=== PATIENT | male | born 1970 | race Hispanic/Latino ===

== ENCOUNTER → 2019-03-22 | Emergency (ER) | payer BC ==
[~2019-03-22] VITALS: Ht 165.1 cm; Wt 86.2 kg
[~2019-03-22] MED LIST: HYDROCODONE/APAP 5MG-325MG TAB PO ONE; KETOROLAC TROMETHAMINE 30 MG/ML VIAL IM ONE; KETOROLAC TROMETHAMINE 30 MG/ML VIAL IV ONE; KETOROLAC TROMETHAMINE 30 MG/ML VIAL ONE; ONDANSETRON HCL 4 MG ORAL DISINTEGRATING TAB PO ONE; SODIUM CHLORIDE 0.9% 1000ML 1,000 ML ONE
--- NOTE | 2019-03-22 05:34 | NUR ---
U NOTIFIED, ETA 1 HOUR
--- NOTE | 2019-03-22 06:58 | Diagnostic Imaging Report ---
EXAM: Right Lower Extremity Venous Duplex Ultrasound INDICATION: Right lower extremity pain COMPARISON: None TECHNIQUE: Chowdary scale, color Doppler and spectral waveform analysis of the right lower extremity deep venous system was performed. FINDINGS: Common Femoral: Fully compressible with normal spontaneous waveforms. Proximal Greater Saphenous: Fully compressible. Femoral: Fully compressible with normal spontaneous waveforms. Normal response to augmentation. Proximal Deep Femoral: Normal spontaneous waveforms. Popliteal: Fully compressible with normal spontaneous waveforms. IMPRESSION: No evidence of deep venous thrombosis above the right calf. Signed by: Porfirio Lovett DO on 03/22/2019 6:55 AM
--- NOTE | 2019-03-22 06:59 | Diagnostic Imaging Report ---
X-RAY RIGHT HIP 2 VIEWS HISTORY: Pain. COMPARISON: None available. FINDINGS: Bones: No acute displaced fracture. Osseous alignment is within normal limits. Joints: The joint spaces are well-maintained. Soft tissues: The soft tissues appear unremarkable. IMPRESSION: No acute radiographic osseous abnormality. Signed by: Porfirio Lovett DO on 03/22/2019 6:55 AM
== END | disposition home or self-care (01) ==
LOC: FSED 04:46
DX: M79.651 Pain in right thigh (principal); S76.211A Strain of adductor muscle, fascia and tendon of right thigh, initial encounter
CPT/HCPCS: 73502; 93971; 96374; 99284; J1885; J7030; Q0162